=== PATIENT | female | born 1965 | race Two or more races ===

== ENCOUNTER 2016-10-11 11:19 | Emergency (ER) | payer OTHER ==
[~2016-10-11] VITALS: Wt 78.0 kg
[~2016-10-11 11:19] MED LIST: ATOR40TA68 PO; CYCL-319 PO; DOCU100C26 PO; MELO-110 PO; RANI300C7 PO; TEMA15CA PO
--- NOTE | 2016-10-11 14:00 | RADRPT ---
PROCEDURE: XR Chest. CLINICAL INDICATION: Cough for 3 weeks. TECHNIQUE: Single frontal view of the chest was obtained COMPARISON: Chest x-ray 07/05/2016. FINDINGS: The soft tissues are normal. The bony elements are normal. The heart, left side aorta, cardiomedias tinal silhouette, pulmonary vasculature and hilar structures are normal. The lungs are clear. The co stophrenic angles are normal. IMPRESSION: 1. Normal chest x-ray with no interval change as compared to July 05, 2016. 2. No acute infiltrate is present. RPTAT:AAJJ Physician Shekhar Date Time Electronically viewed and signed by Kumar Catalan Physician on 10/11/2016 13:59 JAYLA/
[2016-10-11] MEDS ORDERED: BENZ100C70 PO (14:30)
[2016-10-11] MEDS ORDERED: ACET325T33 PO (14:30)
[2016-10-11 15:32] VITALS: BP 134/78; PULSE 99; RESP 18; TEMP 98.4
--- NOTE | 2016-10-11 15:38 | ERD ---
ER Documentation Chief Complaint Date/Time DATE: 10/11/16 TIME: 15:34 Chief Complaint COUGH X 3 WEEK HPI This patient is a 50-year-old female with history of type 2 diabetes and high cholesterol presenting to the emergency department for myalgias, productive cough of green phlegm, tactile fevers, and chest congestion ongoing intermittently for the past 3 weeks. The patient did go to her doctor approximately 2 weeks ago and was prescribed amoxicillin and cough syrup but has only had slight relief. The patient denies any chest pain, shortness of breath, nausea, vomiting, diarrhea, urinary symptoms, or other symptoms at this time peer ROS All systems reviewed and are negative except as per history of present illness. Medications Home Meds Active Scripts Acetaminophen* (Tylenol*) 325 Mg Tablet, 1 TAB PO Q6 Y for PAIN AND OR ELEVATED TEMP, #20 TAB Prov:JERMAINE CASTILLO PA-C 10/11/16 Benzonatate* (Tessalon Perle*) 100 Mg Capsule, 100 MG PO Q8H Y for COUGH, #20 CAP Prov:JERMAINE CASTILLO PA-C 10/11/16 Reported Medications Meloxicam* (Mobic*) 15 Mg Tablet, 15 MG PO DAILY, #30 TAB 07/04/16 Atorvastatin* (Atorvastatin*) 40 Mg Tablet, 20 MG PO QHS, #30 TAB 03/13/16 Temazepam* (Temazepam*) 15 Mg Capsule, 15 MG PO HS MAY REPEAT X 1 Y for INSOMNIA , CAP 03/13/16 Docusate Sodium* (Doc-Q-Lace*) 100 Mg Capsule, 100 MG PO DAILY, CAP 03/13/16 Cyclobenzaprine Hcl* (Cyclobenzaprine Hcl*) 10 Mg Tablet, 10 MG PO TID, #90 TAB 03/13/16 Ranitidine Hcl (Ranitidine Hcl) 300 Mg Capsule, 300 MG PO HS, CAP 06/22/15 Allergies Allergies: Coded Allergies: No Known Allergy (Unverified , 07/05/16) PMhx/Soc History of Surgery: No Anesthesia Reaction: Yes (N/V) Hx Neurological Disorder: No Hx Respiratory Disorders: No Hx Cardiac Disorders: Yes (HTN,HYSTERECTOMY) Hx Psychiatric Problems: No Hx Miscellaneous Medical Probl: Yes (HNP) Hx Alcohol Use: Yes Hx Substance Use: No Hx Tobacco Use: Yes Smoking Status: Never smoker FmHx Noncontributory for chief complaint Physical Exam Vitals Vital Signs Date Time Temp Pulse Resp B/P Pulse Ox O2 Delivery O2 Flow Rate FiO2 10/11/16 15:32 98.4 99 18 134/78 100 Room Air 10/11/16 11:31 99.1 89 18 141/7 99 Physical Exam INITIAL VITAL SIGNS: Reviewed by me. GENERAL: Alert and interactive. No acute distress. HEAD: Head is normocephalic and atraumatic. EYES: EOMI. No scleral icterus. No conjunctival injection. ENT: Moist mucosa. NECK: Supple. Full range of motion. RESPIRATORY: Normal respiratory effort. Clear breath sounds bilaterally. No wheezing, rales, or rhonchi. CV: Regular rate and rhythm. Normal S1 S2. No S3 or S4. No murmurs. ABDOMEN: Soft, non-distended, non-tender. No guarding. No rebound. No masses. EXTREMITIES: No deformity. SKIN: Warm and dry. NEUROLOGIC: Alert and oriented x 4. Speech is normal. Moves all extremities equally. No motor or sensory deficits noted. Procedures/MDM 50-year-old female presents secondary to complaints of myalgias, cough, and tactile fevers. On physical examination the patient's vitals are all within normal limits. Patient's lungs are clear to auscultation bilaterally. One view chest x-ray interpreted by radiologist showed no bronchitis, pneumonia , hyperinflation, or other abnormalities. EKG: Interpreted by ED physician Rate/Rhythm: Normal sinus rhythm with a rate of 96 bpm. QRS, ST, T-waves: No changes consistent w/ acute ischemia Impression: No evidence of ischemia or arrhythmia The patient's primary diagnosis is cough. I believe the patient's symptoms are due to viral etiology. The patient was given a prescription for Tessalon Perles and was told to take ibuprofen as needed for fevers or any pain. I doubt very much any bronchitis, pneumonia, pneumothorax, pulmonary embolism, or other cardiopulmonary abnormalities. Patient was advised to follow-up with her primary care physician within the next 5 days. She is hemodynamically stable for outpatient management. All questions and concerns were addressed. Departure Diagnosis: Primary Impression: Cough Condition: Fair Patient Instructions: Cough, Chronic, Uncertain Cause, (Adult) Referrals: IVETH MASTERS (PCP) Additional Instructions: Follow-up with your primary care physician within 1 week. Return to the emergency department immediately should you have any new or worsening symptoms, uncontrolled fevers, or other unexplained symptoms. Take all medications as directed. JERMAINE CASTILLO PA-C Oct 11, 2016 15:38
== END 2016-10-11 15:31 | disposition home or self-care (01) ==
LOC: FTE 11:19
DX: R05 Cough (principal); I10 Essential (primary) hypertension; E11.9 Type 2 diabetes mellitus without complications
CPT/HCPCS: 71010; 93005

== ENCOUNTER 2016-12-29 14:38 | Emergency (ER) | payer OTHER ==
[~2016-12-29] VITALS: Ht 167.6 cm; Wt 80.0 kg
[~2016-12-29 14:38] MED LIST changes: +ACET325T33 PO; +BENZ100C70 PO
[2016-12-29 14:46] VITALS: Ht 167.6 cm; Wt 80.0 kg
[2016-12-29] MEDS ORDERED: KETOROLAC 30 MG INJ IM STA (15:42)
[2016-12-29] MEDS ORDERED: PRED20TA PO (15:44)
[2016-12-29] MEDS ORDERED: NAPR-260 PO (15:44)
--- NOTE | 2016-12-29 15:46 | ERD ---
ER Documentation Chief Complaint Date/Time DATE: 12/29/16 TIME: 15:45 Chief Complaint LOWER BACK PAIN RADIATING DOWN LEFT LEG, DENIES INJURY HPI This 51-year-old female who presents the emergency department today complaining of left-sided lower back pain. Patient states that she had surgery in July of last year and her pain was improved for a period of time but now has been worse again for the past 3 weeks. States he has pain that goes down her leg. Since that she takes hydrocodone for pain. States that she had an MRI and she is waiting for her results. States she does have some weakness in her knee. denies any loss of bowel or bladder control, fevers or chills or new trauma ROS All systems reviewed and are negative except as per history of present illness. Medications Home Meds Active Scripts Naproxen* (Naprosyn*) 500 Mg Tablet, 500 MG PO BID Y for PAIN AND/OR INFLAMMATION, #30 TAB Prov:LARRY RICHARDSON PA-C 12/29/16 Prednisone* (Prednisone*) 20 Mg Tab, 40 MG PO DAILY for 4 Days, TAB Prov:LARRY RICHARDSON PA-C 12/29/16 Acetaminophen* (Tylenol*) 325 Mg Tablet, 1 TAB PO Q6 Y for PAIN AND OR ELEVATED TEMP, #20 TAB Prov:JERMAINE CASTILLO PA-C 10/11/16 Benzonatate* (Tessalon Perle*) 100 Mg Capsule, 100 MG PO Q8H Y for COUGH, #20 CAP Prov:JERMAINE CASTILLO PA-C 10/11/16 Reported Medications Meloxicam* (Mobic*) 15 Mg Tablet, 15 MG PO DAILY, #30 TAB 07/04/16 Atorvastatin* (Atorvastatin*) 40 Mg Tablet, 20 MG PO QHS, #30 TAB 03/13/16 Temazepam* (Temazepam*) 15 Mg Capsule, 15 MG PO HS MAY REPEAT X 1 Y for INSOMNIA , CAP 03/13/16 Docusate Sodium* (Doc-Q-Lace*) 100 Mg Capsule, 100 MG PO DAILY, CAP 03/13/16 Cyclobenzaprine Hcl* (Cyclobenzaprine Hcl*) 10 Mg Tablet, 10 MG PO TID, #90 TAB 03/13/16 Ranitidine Hcl (Ranitidine Hcl) 300 Mg Capsule, 300 MG PO HS, CAP 06/22/15 Allergies Allergies: Coded Allergies: No Known Allergy (Unverified , 07/05/16) PMhx/Soc History of Surgery: No Anesthesia Reaction: Yes (N/V) Hx Neurological Disorder: No Hx Respiratory Disorders: No Hx Cardiac Disorders: Yes (HTN,HYSTERECTOMY) Hx Psychiatric Problems: No Hx Miscellaneous Medical Probl: Yes (HNP) Hx Alcohol Use: Yes Hx Substance Use: No Hx Tobacco Use: Yes Physical Exam Vitals Vital Signs Date Time Temp Pulse Resp B/P Pulse Ox O2 Delivery O2 Flow Rate FiO2 12/29/16 14:46 99.3 98 20 149/83 97 Physical Exam Const: NAD Head: Atraumatic Eyes: Normal Conjunctiva ENT: Normal External Ears, Nose and Mouth. Neck: Full range of motion..~ No meningismus. Resp: Clear to auscultation bilaterally Cardio: Regular rate and rhythm, no murmurs Skin: No petechiae or rashes Back: No midline tenderness. Left-sided paraspinal tenderness. No CVA tenderness. MSK: Full active range of motion at hip, knee, ankle. Strength 4 out of 5 left compared to right. Pulses 2+. Distal neurovascularly intact Neuro: Awake and alert Psych: Normal Mood and Affect Results 24 hrs Current Medications Medications (Trade) Dose Ordered Sig/Mohinder Route PRN Reason Start Time Stop Time Status Last Admin Dose Admin Ketorolac Tromethamine (Toradol) 30 mg ONCE STAT IM 12/29/16 15:42 12/29/16 15:44 DC Prednisone (Prednisone) 60 mg ONCE ONCE PO 12/29/16 16:00 12/29/16 16:01 Procedures/MDM This 51-year-old female who presents the emergency department today complaining of left-sided back pain that radiates down her left leg. Patient has a history of surgery in July [address] Gudino. Upon review of the operative report patient had a left-sided L3-4 discectomy, L3 and L4 laminectomy and decompression of the L3 and L4 nerve root. She did indicate that for a period of time she did have some improvement in pain and symptoms however her pain has returned in the past 3 weeks. She is waiting for results of her MRI and is hoping to be able to follow-up next week. Patient has no new trauma. She is afebrile and otherwise well-appearing. Do not feel she requires laboratory work or imaging at this time. Low suspicion for acute fracture dislocation. Low suspicion for abscess or cauda equina. Patient symptoms at this time is consistent with back pain and lower extremity radiculopathy. Patient did indicate that she has some weakness in her knee however that she does walk with a walker and does feel safe. Patient was really requesting pain medication. Patient was given Toradol here in the emergency department. I did also give her prednisone here as well. She has been instructed to continue taking her regular Haskins at home as well as her Soma. I did give her Naprosyn as well as a short course of prednisone for home. Patient does have diabetes and she was instructed to stop taking the prednisone at home if her blood sugar dramatically increases. Patient was instructed to follow-up next week on results of her MRI. At this time the patient is stable for discharge and outpatient management. Patient should follow up with their PCP in the next 1-2 days. They may return to the emergency department sooner for any persistent or worsening of symptoms. Patient understood and agreed with the plan. Departure Diagnosis: Primary Impression: Back pain Back pain location: low back pain Chronicity: chronic Back pain laterality : left Sciatica presence: with sciatica Sciatica laterality: sciatica of left side Qualified Code: M54.42 - Chronic left-sided low back pain with left- sided sciatica Condition: Fair Referrals: IVETH MASTERS (PCP) DR. Gudino Additional Instructions: Llame al doctor OMAR y manuel christopher SHAWN PARA DENTRO DE 1-2 BARRON.Dgale a la secretaria que nosotros le instruimos hacer esta shawn.Avise o llame si belle condicin se empeora antes de la shawn. Regresa aqui si peor o no mejor. Call your doctor tomorrow to find out results of MRI Take your usual pain medication and take Naprosyn and prednisone as prescribed LARRY RICHARDSON PA-C Dec 29, 2016 15:46
[2016-12-29] MEDS ORDERED: predniSONE 20 MG TAB PO ONE (16:00)
== END 2016-12-29 16:19 | disposition home or self-care (01) ==
LOC: FTE 14:38
DX: M54.42 Lumbago with sciatica, left side (principal); I10 Essential (primary) hypertension; Z87.891 Personal history of nicotine dependence
CPT/HCPCS: 96372; J1885; J7512; Z7502

== ENCOUNTER 2017-04-18 07:51 | Emergency (ER) | payer OTHER ==
[~2017-04-18] VITALS: Wt 80.0 kg
[~2017-04-18 07:51] MED LIST changes: +NAPR-260 PO; +PRED20TA PO
[2017-04-18] MEDS ORDERED: KETOROLAC 30 MG INJ IM STA (08:19)
[2017-04-18] MEDS ORDERED: DIAZEPAM 5 MG TAB PO STA (08:19)
[2017-04-18] MEDS ORDERED: NAPR-260 PO (08:25)
--- NOTE | 2017-04-18 08:44 | ERD ---
ER Documentation Chief Complaint Date/Time DATE: 04/18/17 TIME: 08:38 Chief Complaint RIGHT SIDE PAIN, RECENT BACK SURGERY, NO NUMBNESS, AMBULATORY HPI 51 year old female presents to ER SP lumbar disc herniation surgery in [place] on March 07 complaining of moderate, achy bilateral lumbar back pain when she walks, R>L. Patient denies saddle anesthesia, bladder or bowel incontinence. She states she has been taking cyclobenzaprine without much relief. Patient walks with a cane ROS All systems reviewed and are negative except as per history of present illness. Medications Home Meds Active Scripts Naproxen* (Naprosyn*) 500 Mg Tablet, 500 MG PO BID Y for PAIN AND/OR INFLAMMATION, #30 TAB Prov:MAYRA SANCHEZ PA-C 04/18/17 Naproxen* (Naprosyn*) 500 Mg Tablet, 500 MG PO BID Y for PAIN AND/OR INFLAMMATION, #30 TAB Prov:LARRY RICHARDSON PA-C 12/29/16 Prednisone* (Prednisone*) 20 Mg Tab, 40 MG PO DAILY for 4 Days, TAB Prov:LARRY RICHARDSON PA-C 12/29/16 Acetaminophen* (Tylenol*) 325 Mg Tablet, 1 TAB PO Q6 Y for PAIN AND OR ELEVATED TEMP, #20 TAB Prov:JERMAINE CASTILLO PA-C 10/11/16 Benzonatate* (Tessalon Perle*) 100 Mg Capsule, 100 MG PO Q8H Y for COUGH, #20 CAP Prov:JERMAINE CASTILLO PA-C 10/11/16 Reported Medications Meloxicam* (Mobic*) 15 Mg Tablet, 15 MG PO DAILY, #30 TAB 07/04/16 Atorvastatin* (Atorvastatin*) 40 Mg Tablet, 20 MG PO QHS, #30 TAB 03/13/16 Temazepam* (Temazepam*) 15 Mg Capsule, 15 MG PO HS MAY REPEAT X 1 Y for INSOMNIA , CAP 03/13/16 Docusate Sodium* (Doc-Q-Lace*) 100 Mg Capsule, 100 MG PO DAILY, CAP 03/13/16 Cyclobenzaprine Hcl* (Cyclobenzaprine Hcl*) 10 Mg Tablet, 10 MG PO TID, #90 TAB 03/13/16 Ranitidine Hcl (Ranitidine Hcl) 300 Mg Capsule, 300 MG PO HS, CAP 06/22/15 Allergies Allergies: Coded Allergies: No Known Allergy (Unverified , 07/05/16) PMhx/Soc History of Surgery: No (BACK SX) Anesthesia Reaction: Yes (N/V) Hx Neurological Disorder: No Hx Respiratory Disorders: No Hx Cardiac Disorders: No Hx Psychiatric Problems: No Hx Miscellaneous Medical Probl: Yes (DM, CHRONIC BACK PAIN) Hx Alcohol Use: No Hx Substance Use: No Hx Tobacco Use: No Smoking Status: Never smoker Physical Exam Vitals Vital Signs Date Time Temp Pulse Resp B/P Pulse Ox O2 Delivery O2 Flow Rate FiO2 04/18/17 07:55 98.1 73 17 125/69 98 Physical Exam Exam GENERAL: WD/WN, in no apparent distress, non-toxic appearing HENT: NC/AT EYES: Conjunctiva normal NECK: Supple PULM: Normal labored breathing CV: Good capillary refill GI: Non-distended, no guarding BACK: no deformities noted, normal spinal curvature, TTP on lumbar region BL, non-tender on spine midline scar in lumbar spine midline EXT: No clubbing, cyanosis, or edema NEURO: Moves on all fours, sensation intact, normal gait SKIN: intact PSYCH: Normal mood Results 24 hrs Current Medications Medications (Trade) Dose Ordered Sig/Mohinder Route PRN Reason Start Time Stop Time Status Last Admin Dose Admin Ketorolac Tromethamine (Toradol) 30 mg ONCE STAT IM 04/18/17 08:19 04/18/17 08:21 DC 04/18/17 08:32 Diazepam (Valium) 10 mg ONCE STAT PO 04/18/17 08:19 04/18/17 08:21 DC 04/18/17 08:29 Procedures/MDM 51 year old female presents to ER SP lumbar disc herniation surgery in [place] on March 07 complaining of moderate, achy bilateral lumbar back pain when she walks, R>L. Low suspicion for cauda equina, infection. Patient appears well, ambulating with cane. This is likely a stain due to physical examination. In the ED, patient was given toradol and valium. Prescription for naproxen was provided, discussed to follow-up with her back surgeon. Patient understood and agreed with plan Departure Diagnosis: Primary Impression: Lumbar strain Condition: Stable Patient Instructions: Back Spasm, No Trauma, Back Sprain/Strain Additional Instructions: Visite a belle mdico maana para un EXAMEN.Regrese a estas instalaciones si no se mejora cheryl esperbamos o cheryl le dijimos. Ixl toda la medicina sanaz y cheryl se le indic. MAYRA SANCHEZ PA-C Apr 18, 2017 08:44
== END 2017-04-18 08:49 | disposition home or self-care (01) ==
LOC: FTE 07:51
DX: S39.012A Strain of muscle, fascia and tendon of lower back, initial encounter (principal); E11.9 Type 2 diabetes mellitus without complications; X58.XXXA Exposure to other specified factors, initial encounter; Y92.9 Unspecified place or not applicable
CPT/HCPCS: 96372; J1885; Z7502; Z7610

== ENCOUNTER 2017-09-23 08:55 | Emergency (ER) | END 2017-09-23 12:31 | disposition home or self-care (01) ==

== ENCOUNTER 2018-01-27 09:36 | Emergency (ER) | END 2018-01-27 11:35 | disposition home or self-care (01) ==

== ENCOUNTER 2018-04-19 07:38 | Emergency (ER) | END 2018-04-19 08:37 | disposition home or self-care (01) ==

== ENCOUNTER 2018-06-17 08:40 | Emergency (ER) | END 2018-06-17 10:15 | disposition home or self-care (01) ==

== ENCOUNTER 2018-08-23 12:18 | Emergency (ER) | END 2018-08-23 15:14 | disposition home or self-care (01) ==

== ENCOUNTER 2018-11-17 17:15 | Emergency (ER) | payer OTHER ==
[~2018-11-17] VITALS: Ht 162.6 cm; Wt 78.8 kg
[~2018-11-17 17:15] MED LIST changes: +BENZ-6 PO; -BENZ100C70 PO; +CIPR500T4 PO; -CYCL-319 PO; +CYCL10TA7 PO; +DOCU-221 PO; -DOCU100C26 PO; +IBUP-1542 PO; +MED4DP PO; -MELO-110 PO; +MELO15TA30 PO; -NAPR-260 PO; +NAPR-985 PO; +OXYC-279 PO
[2018-11-17 17:44] VITALS: BP 127/72; PULSE 90; RESP 20; Ht 162.6 cm; Wt 78.8 kg
[2018-11-17] MEDS ORDERED: IBUP800T48 PO (20:17)
--- NOTE | 2018-11-17 20:19 | ERD ---
ER Documentation Chief Complaint Chief Complaint st x 4 weeks; finished ATB from pmd; still c/o pain and pain swallowing HPI 53-year-old female presents with sore throat that she had for 4 weeks. She did see her primary care doctor who gave her a prescription for amoxicillin which she completed but states she continues to have pain. She is tolerating oral intake. No fever. She has appointment coming up for an endoscopy at the beginning of November. No nausea or vomiting. No chest pain palpitations or shortness of breath. ROS All systems reviewed and are negative except as per history of present illness. Medications Home Meds Active Scripts Ibuprofen* (Motrin*) 800 Mg Tab, 800 MG PO Q6, #30 TAB Prov:RAFFI POWELL PA-C 11/17/18 Ibuprofen* (Motrin*) 600 Mg Tab, 600 MG PO Q8, #30 TAB Prov:NITA BALTAZAR MD 08/23/18 Cyclobenzaprine Hcl* (Cyclobenzaprine Hcl*) 10 Mg Tablet, 10 MG PO TID, #15 TAB Prov:GIGI PATRICIA PA-C 06/17/18 Methylprednisolone* (Medrol* DOSE PACK) 4 Mg/Dose-Pack Tab.ds.pk, 4 MG PO . DIRECTED, #1 PACKET Prov:GIGI PATRICIA PA-C 06/17/18 Oxycodone HCl/Acetaminophen (Percocet 5-325 mg Tablet) 1 Each Tablet, 1 EACH PO DAILY, #7 TAB Prov:GIGI PATRICIA PA-C 06/17/18 Naproxen* (Naprosyn*) 500 Mg Tablet, 500 MG PO BID PRN for PAIN AND/OR INFLAMMATION, #30 TAB Prov:GIGI PATRICIA PA-C 06/17/18 Acetaminophen* (Tylenol*) 325 Mg Tablet, 1 TAB PO Q6 PRN for PAIN AND OR ELEVATED TEMP, #20 TAB Prov:JACEY WRIGHT PA-C 04/19/18 Ibuprofen* (Motrin*) 600 Mg Tab, 600 MG PO Q6H PRN for PAIN AND OR ELEVATED TEMP, #30 TAB Prov:JACEY WRIGHT PA-C 04/19/18 Oxycodone HCl/Acetaminophen (Percocet 5-325 mg Tablet) 1 Each Tablet, 1 EACH PO DAILY, #5 TAB Prov:GIGI PATRICIAC 01/27/18 Naproxen* (Naprosyn*) 500 Mg Tablet, 500 MG PO BID PRN for PAIN AND/OR INFLAMMATION, #30 TAB Prov:GIGI PATRICIA PA-C 01/27/18 Ciprofloxacin Hcl* (Ciprofloxacin Hcl*) 500 Mg Tablet, 500 MG PO BID for 7 Days, TAB Prov:GIGI PATRICIA PA-C 01/27/18 Methylprednisolone* (Medrol* DOSE PACK) 4 Mg/Dose-Pack Tab.ds.pk, 4 MG PO . DIRECTED, #1 PACKET Prov:GIGI PATRICIA PA-C 01/27/18 Ibuprofen* (Motrin*) 600 Mg Tab, 600 MG PO Q6, #30 TAB Prov:JACEY WRIGHT PA-C 09/23/17 Naproxen* (Naprosyn*) 500 Mg Tablet, 500 MG PO BID PRN for PAIN AND/OR INFLAMMATION, #30 TAB Prov:MAYRA SANCHEZ PA-C 04/18/17 Naproxen* (Naprosyn*) 500 Mg Tablet, 500 MG PO BID PRN for PAIN AND/OR INFLAMMATION, #30 TAB Prov:LARRY RICHARDSON PA-C 12/29/16 Prednisone* (Prednisone*) 20 Mg Tab, 40 MG PO DAILY for 4 Days, TAB Prov:LARRY RICHARDSONC 12/29/16 Acetaminophen* (Tylenol*) 325 Mg Tablet, 1 TAB PO Q6 PRN for PAIN AND OR ELEVATED TEMP, #20 TAB Prov:JERMAINE CASTILLOC 10/11/16 Benzonatate* (Tessalon Perle*) 100 Mg Capsule, 100 MG PO Q8H PRN for COUGH, #20 CAP Prov:JERMAINE CASTILLOC 10/11/16 Reported Medications Meloxicam* (Mobic*) 15 Mg Tablet, 15 MG PO DAILY, #30 TAB 07/04/16 Atorvastatin* (Atorvastatin*) 40 Mg Tablet, 20 MG PO QHS, #30 TAB 03/13/16 Temazepam* (Temazepam*) 15 Mg Capsule, 15 MG PO HS MAY REPEAT X 1 PRN for INSOMNIA, CAP 03/13/16 Docusate Sodium* (Doc-Q-Lace*) 100 Mg Capsule, 100 MG PO DAILY, CAP 03/13/16 Cyclobenzaprine Hcl* (Cyclobenzaprine Hcl*) 10 Mg Tablet, 10 MG PO TID, #90 TAB 03/13/16 Ranitidine Hcl (Ranitidine Hcl) 300 Mg Capsule, 300 MG PO HS, CAP 06/22/15 Allergies Allergies: Coded Allergies: No Known Allergy (Unverified , 01/27/18) PMhx/Soc History of Surgery: Yes (lower back, lwft shoulder, left wrist) Anesthesia Reaction: No Hx Neurological Disorder: Yes (L leg sciatica) Hx Respiratory Disorders: No Hx Cardiac Disorders: Yes (HTN,HYPERCHOLESTEROLEMIA) Hx Psychiatric Problems: No Hx Miscellaneous Medical Probl: Yes (DM) Hx Alcohol Use: No Hx Substance Use: No Hx Tobacco Use: No Smoking Status: Never smoker FmHx Family History: diabetes Physical Exam Vitals Vital Signs Date Temp Pulse Resp B/P (MAP) Pulse Ox O2 O2 Flow FiO2 Time Delivery Rate 11/17/18 98.6 90 20 127/72 99 17:44 (90) Physical Exam INITIAL VITAL SIGNS: Reviewed by me GENERAL: Awake, alert and oriented x 4, well appearing, nontoxic, speaking in full sentences. No acute distress HEAD: Atraumatic NECK: Supple. No masses. Full range of motion. No meningismus. No midline tenderness. EYES: EOMI. PERRL. THROAT: No tonilar erythema or edema. No exudates. Uvula midline. No kissing tonsils. RESPIRATORY: Clear to auscultation bilaterally. Symmetric chest wall rise. No wheezing or rales. No accessory muscle use. CV: Regular rate and rhythm. No murmurs, rubs, or gallops. Procedures/MDM Patient is here with sore throat. She already completed antibiotics. She is afebrile well-appearing her exam is normal. She is tolerating oral intake. She can take Tylenol or Motrin at home for pain and follow-up for her endoscopy. No indication for further workup at this time. Patient counseled regarding my diagnostic impression and care plan. Prior to discharge all questions answered. Pt agrees with treatment plan and understands strict return precautions. Pt is instructed to follow up with primary care provider within 24-48 hours. Precautionary instructions provided including instructions to return to the ER if not improving or for any worsening or changing symptoms or concerns. Departure Diagnosis: Primary Impression: Sore throat Condition: Stable Patient Instructions: Self-Care for Sore Throats Additional Instructions: Llame al doctor MAANA y manuel christopher SHAWN PARA DENTRO DE 1-2 BARRON.Dgale a la secretaria que nosotros le instruimos hacer esta shawn.Avise o llame si belle condicin se empeora antes de la shawn. Regresa aqui si peor o no mejor. RAFFI POWELL PA-C Nov 17, 2018 20:19
== END 2018-11-17 20:26 | disposition home or self-care (01) ==
LOC: FTE 17:15
DX: J02.9 Acute pharyngitis, unspecified (principal); I10 Essential (primary) hypertension; E11.9 Type 2 diabetes mellitus without complications
CPT/HCPCS: 99282

== ENCOUNTER 2018-12-16 12:24 | Day surgery (SDC) | payer OTHER ==
[~2018-12-16] VITALS: Ht 157.5 cm; Wt 79.1 kg
[~2018-12-16 12:24] MED LIST changes: +IBUP800T48 PO; +PROPOFOL 200 MG INJ ONE
[2018-12-16 13:04] VITALS: Ht 157.5 cm; Wt 79.1 kg
[2018-12-16] MEDS ORDERED: OMEPRAZOLE (13:12)
[2018-12-16] MEDS ORDERED: GABAPENTIN (13:12)
[2018-12-16] MEDS ORDERED: MAPAP (13:12)
[2018-12-16] MEDS ORDERED: METFORMIN (13:12)
[2018-12-16] MEDS ORDERED: FLUTICASONE (13:12)
[2018-12-16 13:35] VITALS: BP 119/63; PULSE 76; RESP 16
[2018-12-16] MEDS ORDERED: PROPOFOL 20 ML ONE (14:31)
[2018-12-16] MEDS ORDERED: LIDOCAINE 100 MG SYRINGE ONE (14:31)
--- NOTE | 2018-12-16 14:42 | PREAC ---
Date/Time of Note Date/Time of Note DATE: 12/16/18 TIME: 14:38 Anesthesia Eval and Record Evaluation Time Pre-Procedure Interview DATE: 12/16/18 TIME: 14:38 Age 53 Sex female NPO: 8 hrs Preoperative diagnosis abdominal pain / melena Planned procedure EGD / Colonoscopy Past Medical History Past Medical History: Includes Cardio: Dyslipidemia Endo: Diabetes Pulm: Smoking Hx Surgery & Anesthesia Issues No known issue Meds Anticoagulation: No Beta Marquita within 24 hr: No Reason Beta Marquita not given: Pt. not on B-Marquita Active Scripts Cyclobenzaprine Hcl* (Cyclobenzaprine Hcl*) 10 Mg Tablet, 10 MG PO TID, #15 TAB Prov:GIGI PATRICIA PA-C 06/17/18 Oxycodone HCl/Acetaminophen (Percocet 5-325 mg Tablet) 1 Each Tablet, 1 EACH PO DAILY, #7 TAB Prov:GIGI PATRICIA PA-C 06/17/18 Ibuprofen* (Motrin*) 600 Mg Tab, 600 MG PO Q6H PRN for PAIN AND OR ELEVATED TEMP, #30 TAB Prov:JACEY WRIGHT PA-C 04/19/18 Oxycodone HCl/Acetaminophen (Percocet 5-325 mg Tablet) 1 Each Tablet, 1 EACH PO DAILY, #5 TAB Prov:GIGI PATRICIA PA-C 01/27/18 Ibuprofen* (Motrin*) 600 Mg Tab, 600 MG PO Q6, #30 TAB Prov:JACEY WRIGHT PA-C 09/23/17 Reported Medications [Mapap] No Conflict Check 12/16/18 [Fluticasone] No Conflict Check 12/16/18 [Gabapentin] No Conflict Check 12/16/18 [Omeprazole] No Conflict Check 12/16/18 [Metformin] No Conflict Check 12/16/18 Cyclobenzaprine Hcl* (Cyclobenzaprine Hcl*) 10 Mg Tablet, 10 MG PO TID, #90 TAB 03/13/16 Ranitidine Hcl (Ranitidine Hcl) 300 Mg Capsule, 300 MG PO HS, CAP 06/22/15 Discontinued Reported Medications Meloxicam* (Mobic*) 15 Mg Tablet, 15 MG PO DAILY, #30 TAB 07/04/16 Atorvastatin* (Atorvastatin*) 40 Mg Tablet, 20 MG PO QHS, #30 TAB 7/13/16 Temazepam* (Temazepam*) 15 Mg Capsule, 15 MG PO HS MAY REPEAT X 1 PRN for INSOMNIA, CAP 03/13/16 Docusate Sodium* (Doc-Q-Lace*) 100 Mg Capsule, 100 MG PO DAILY, CAP 03/13/16 Discontinued Scripts Ibuprofen* (Motrin*) 800 Mg Tab, 800 MG PO Q6, #30 TAB Prov:RAFFI POWELL PA-C 11/17/18 Ibuprofen* (Motrin*) 600 Mg Tab, 600 MG PO Q8, #30 TAB Prov:NITA BALTAZAR MD 08/23/18 Methylprednisolone* (Medrol* DOSE PACK) 4 Mg/Dose-Pack Tab.ds.pk, 4 MG PO . DIRECTED, #1 PACKET Prov:GIGI PATRICIA PA-C 06/17/18 Naproxen* (Naprosyn*) 500 Mg Tablet, 500 MG PO BID PRN for PAIN AND/OR INFLAMMATION, #30 TAB Prov:GIGI PATRICIA PA-C 06/17/18 Acetaminophen* (Tylenol*) 325 Mg Tablet, 1 TAB PO Q6 PRN for PAIN AND OR ELEVATED TEMP, #20 TAB Prov:JACEY WRIGHT PA-C 04/19/18 Naproxen* (Naprosyn*) 500 Mg Tablet, 500 MG PO BID PRN for PAIN AND/OR INFLAMMATION, #30 TAB Prov:GIGI PATRICIA PA-C 01/27/18 Ciprofloxacin Hcl* (Ciprofloxacin Hcl*) 500 Mg Tablet, 500 MG PO BID for 7 Days, TAB Prov:GIGI PATRICIA PA-C 01/27/18 Methylprednisolone* (Medrol* DOSE PACK) 4 Mg/Dose-Pack Tab.ds.pk, 4 MG PO . DIRECTED, #1 PACKET Prov:GIGI PATRICIA PA-C 01/27/18 Naproxen* (Naprosyn*) 500 Mg Tablet, 500 MG PO BID PRN for PAIN AND/OR INFLAMMATION, #30 TAB Prov:MAYRA SANCHEZ PA-C 04/18/17 Naproxen* (Naprosyn*) 500 Mg Tablet, 500 MG PO BID PRN for PAIN AND/OR INFLAMMATION, #30 TAB Prov:LARRY RICHARDSON PA-C 12/29/16 Prednisone* (Prednisone*) 20 Mg Tab, 40 MG PO DAILY for 4 Days, TAB Prov:LARRY RICHARDSON PA-C 12/29/16 Acetaminophen* (Tylenol*) 325 Mg Tablet, 1 TAB PO Q6 PRN for PAIN AND OR ELEVATED TEMP, #20 TAB Prov:JERMAINE CASTILLO PA-C 10/11/16 Benzonatate* (Tessalon Perle*) 100 Mg Capsule, 100 MG PO Q8H PRN for COUGH, #20 CAP Prov:JERMAINE CASTILLO PA-C 10/11/16 Meds reviewed: Yes Allergies Coded Allergies: No Known Allergy (Unverified , 12/16/18) Allergies Reviewed: Yes Labs/Studies Labs Reviewed: Reviewed by anesthesiologist test: N/A Pre-procedure Exam Last vitals Vital Signs Date Temp Pulse Resp B/P (MAP) Pulse Ox O2 O2 Flow FiO2 Time Delivery Rate 12/16/18 98.2 76 16 119/63 97 Room Air 13:35 (81) Airway: Adequate mouth opening Mallampati: Mallampati II Teeth: Normal Lung: Normal Heart: Normal ASA Physical Status ASA physical status: 2 Emergency: None Planned Anesthetic General/MAC: MAC Pre-operative Attestations Prior to commencing anesthesia and surgery, the patient was re-evaluated, there was verification of: *The patient's identity *The results of appropriate recent lab work and preoperative vital signs *The above evaluation not changing prior to induction *Anesthetic plan, risk benefits, alternative and complications discussed with patient/family; questions answered; patient/family understands, accepts and wishes to proceed. SHIKHA LIZARRAGA Dec 16, 2018 14:42
--- NOTE | 2018-12-16 15:08 | PAC ---
Date/Time of Note Date/Time of Note DATE: 12/16/18 TIME: 15:08 Post-Anesthesia Notes Post-Anesthesia Note Last documented vital signs Vital Signs Date Temp Pulse Resp B/P (MAP) Pulse Ox O2 O2 Flow FiO2 Time Delivery Rate 12/16/18 98.2 76 16 119/63 97 Room Air 13:35 (81) Activity: WNL Respiratory function: WNL Cardiovascular function: WNL Mental status: Baseline Pain reasonably controlled: Yes Hydration appropriate: Yes Nausea/Vomiting absent: Yes SHIKHA LIZARRAGA Dec 16, 2018 15:08
[2018-12-16 15:15] VITALS: BP 101/55; PULSE 74; RESP 20
[2018-12-16 15:30] VITALS: BP 124/61; PULSE 80; RESP 22
[2018-12-16 15:45] VITALS: BP 121/64; PULSE 74; RESP 16
== END 2018-12-16 17:58 | disposition home or self-care (01) ==
LOC: GIL 12:24
PROVIDERS: ATTEND Internal Medicine Gastroenterology
DX: Z12.11 Encounter for screening for malignant neoplasm of colon (principal); K62.1 Rectal polyp; D12.2 Benign neoplasm of ascending colon; D12.4 Benign neoplasm of descending colon; K64.8 Other hemorrhoids; E11.9 Type 2 diabetes mellitus without complications; E78.5 Hyperlipidemia, unspecified; Z87.891 Personal history of nicotine dependence
CPT/HCPCS: 43239; 45380; 82962; 88305; 88312; J2001; Z7610

== ENCOUNTER 2019-02-08 07:29 | Emergency (ER) | payer OTHER ==
[~2019-02-08] VITALS: Ht 162.6 cm; Wt 79.4 kg
[~2019-02-08 07:29] MED LIST changes: -ACET325T33 PO; -ATOR40TA68 PO; -BENZ-6 PO; -CIPR500T4 PO; -DOCU-221 PO; +FLUTICASONE; +GABAPENTIN; -IBUP800T48 PO; +MAPAP; -MED4DP PO; -MELO15TA30 PO; +METFORMIN; -NAPR-985 PO; +OMEPRAZOLE; -PRED20TA PO; -PROPOFOL 200 MG INJ ONE; -TEMA15CA PO
[2019-02-08 07:32] VITALS: BP 126/84; PULSE 88; RESP 18; Ht 162.6 cm; Wt 79.4 kg
[2019-02-08] MEDS ORDERED: KETOROLAC 60 MG INJ IM STA (07:55)
[2019-02-08] MEDS ORDERED: DEXAMETHASONE 10 MG/ML 1 ML INJ IM ONE (08:00)
[2019-02-08] MEDS ORDERED: NAPR-985 PO (08:23)
[2019-02-08] MEDS ORDERED: MED4DP PO (08:23)
--- NOTE | 2019-02-08 09:28 | ERD ---
ER Documentation Chief Complaint Chief Complaint I have scatica pain left side x3 days HPI 53-year-old female presenting with pain to the left back extending down her left buttock. Patient has a history of sciatic pain. Patient takes chronic medications for this pain however has had a recent flare. Denies any numbness or tingling denies any recent falls. She denies any difficulties urinating or having bowel moods. Denies other medical problems. NKDA. Surgical history denies. Social history denies ROS All systems reviewed and are negative except as per history of present illness. Medications Home Meds Active Scripts Naproxen* (Naprosyn*) 500 Mg Tablet, 500 MG PO BID PRN for PAIN AND/OR INFLAMMATION, #30 TAB Prov:GIGI PATRICIA PA-C 02/08/19 Methylprednisolone* (Medrol* DOSE PACK) 4 Mg/Dose-Pack Tab.ds.pk, 4 MG PO . DIRECTED, #1 PACKET Prov:GIGI PATRICIA PA-C 02/08/19 Cyclobenzaprine Hcl* (Cyclobenzaprine Hcl*) 10 Mg Tablet, 10 MG PO TID, #15 TAB Prov:GIGI PATRICIA PA-C 06/17/18 Oxycodone HCl/Acetaminophen (Percocet 5-325 mg Tablet) 1 Each Tablet, 1 EACH PO DAILY, #7 TAB Prov:GIGI PATRICIA PA-C 06/17/18 Ibuprofen* (Motrin*) 600 Mg Tab, 600 MG PO Q6H PRN for PAIN AND OR ELEVATED TEMP, #30 TAB Prov:JACEY WRIGHT PA-C 04/19/18 Oxycodone HCl/Acetaminophen (Percocet 5-325 mg Tablet) 1 Each Tablet, 1 EACH PO DAILY, #5 TAB Prov:GIGI PATRICIA PA-C 01/27/18 Ibuprofen* (Motrin*) 600 Mg Tab, 600 MG PO Q6, #30 TAB Prov:JACEY WRIGHT PA-C 09/23/17 Reported Medications [Mapap] No Conflict Check 12/16/18 [Fluticasone] No Conflict Check 12/16/18 [Gabapentin] No Conflict Check 12/16/18 [Omeprazole] No Conflict Check 12/16/18 [Metformin] No Conflict Check 12/16/18 Cyclobenzaprine Hcl* (Cyclobenzaprine Hcl*) 10 Mg Tablet, 10 MG PO TID, #90 TAB 03/13/16 Ranitidine Hcl (Ranitidine Hcl) 300 Mg Capsule, 300 MG PO HS, CAP 06/22/15 Allergies Allergies: Coded Allergies: No Known Allergy (Unverified , 12/16/18) PMhx/Soc History of Surgery: Yes (BACK SX; HYSTERECTOMY) Anesthesia Reaction: No Hx Neurological Disorder: No Hx Respiratory Disorders: No Hx Cardiac Disorders: Yes (HIGH CHOLESTEROL) Hx Psychiatric Problems: No Hx Miscellaneous Medical Probl: No Hx Alcohol Use: No Hx Substance Use: No Hx Tobacco Use: Yes Smoking Status: Former smoker FmHx Family History: No diabetes, No coronary disease, No other Physical Exam Vitals Vital Signs Date Temp Pulse Resp B/P (MAP) Pulse Ox O2 O2 Flow FiO2 Time Delivery Rate 02/08/19 98.4 88 18 126/84 98 07:32 (98) Physical Exam GENERAL: The patient is well-appearing, well-nourished, in no acute distress CHEST: Clear to auscultation bilaterally. There are no rales, wheezes or rhonchi. HEART: Regular rate and rhythm. No murmurs, clicks, rubs or gallops. ABDOMEN:Soft, nontender and nondistended. Good bowel sounds. No rebound or guarding. No gross peritonitis. No gross organomegaly or masses. BACK: No midline or flank tenderness. Palpation over the left back extending down the buttocks. EXTREMITIES: Equal pulses bilaterally. There is no peripheral clubbing, cyanosis or edema. No focal swelling or erythema. Full range of motion. Grossly neurovascularly intact. NEUROLOGIC: Alert and oriented. Cranial nerves II through XII intact. Motor strength in all 4 extremities with 5 out of 5 strength. Sensation grossly intact. Normal speech and gait. SKIN: There is no apparent rash or petechiae. The skin is warm and dry. Results 24 hrs Current Medications Medications Dose Sig/Mohinder Start Time Status Last (Trade) Ordered Route PRN Stop Time Admin Dose Reason Admin Ketorolac 60 mg ONCE STAT 02/08/19 DC 02/08/19 Tromethamine IM 07:55 08:10 (Toradol) 02/08/19 07:57 10 mg ONCE ONCE 02/08/19 DC 02/08/19 Dexamethasone IM 08:00 08:10 (Decadron) 02/08/19 08:01 Procedures/MDM ER course: Toradol and Decadron given in ED. MDM: 53-year-old female presenting with back pain. Patient has narcotic medications at home to alleviate her pain so I will supply a short course of steroids to alleviate inflammation of the nerves. I do not feel blood work or imaging is indicated. Patient has not had a recent traumatic injury. Patient's pain is likely associated with sciatica and I have low suspicion for discitis, epidural abscess or discitis. Patient is discharged with strict ER precautions. All questions answered at discharge Departure Diagnosis: Primary Impression: Back pain with sciatica Condition: Stable Patient Instructions: Back Pain W/ Sciatica Referrals: [facility] YOU HAVE RECEIVED A MEDICAL SCREENING EXAM AND THE RESULTS INDICATE THAT YOU DO NOT HAVE A CONDITION THAT REQUIRES URGENT TREATMENT IN THE EMERGENCY DEPARTMENT. FURTHER EVALUATION AND TREATMENT OF YOUR CONDITION CAN WAIT UNTIL YOU ARE SEEN IN YOUR DOCTORS OFFICE WITHIN THE NEXT 1-2 DAYS. IT IS YOUR RESPONSIBILITY TO MAKE AN APPOINTMENT FOR FOLOW-UP CARE. IF YOU HAVE A PRIMARY DOCTOR --you should call your primary doctor and schedule an appointment IF YOU DO NOT HAVE A PRIMARY DOCTOR YOU CAN CALL OUR PHYSICIAN REFERRAL HOTLINE AT IF YOU CAN NOT AFFORD TO SEE A PHYSICIAN YOU CAN CHOSE FROM THE FOLLOWING [facility] [address] [facility] [address] [facility] [facility] [address] [facility] [address] [facility] [address] [facility]. [facility] [address] Additional Instructions: FOLLOW UP WITH YOUR PRIMARY CARE PHYSICIAN TOMORROW.Return to this facility if you are not improving as expected. GIGI PATRICIA PA-C Feb 08, 2019 09:28
== END 2019-02-08 08:39 | disposition home or self-care (01) ==
LOC: FTE 07:29
DX: M54.42 Lumbago with sciatica, left side (principal); Z87.891 Personal history of nicotine dependence
CPT/HCPCS: 96372; J1100; J1885; Z7502

== ENCOUNTER 2019-06-30 05:40 | Day surgery (SDC) | payer OTHER ==
[2019-06-30] VITALS (12 sets, daily range): BP systolic 96–124; BP diastolic 57–75; PULSE 68–84; RESP 12–18; Ht 157.5 cm; Wt 76.0 kg
[~2019-06-30] VITALS: Ht 157.5 cm; Wt 76.0 kg
[~2019-06-30 05:40] MED LIST changes: +BACL10TA ORAL; +EZET10TA32 ORAL; +GABA400C14 ORAL; +HYDR-3609 ORAL; +MED4DP PO; +METF-849 PO; +NAPR-985 PO; +ONDA8TAB9 PO; +PANT40TA4 ORAL; +SULI150T PO; +ZOLP10TA5 ORAL
[2019-06-30] MEDS ORDERED: EPINEPHrine 1 MG/ML 30 ML INJ ONE (06:58)
[2019-06-30] MEDS ORDERED: morphine SULFATE/PF (10 MG/10 ML) INJ ONE (06:59)
[2019-06-30] MEDS ORDERED: CEFAZOLIN 1 GM/NS 50 ML X 1 IVPB ONE (07:00)
[2019-06-30] MEDS ORDERED: METOCLOPRAMIDE 10 MG INJ ONE (07:33)
[2019-06-30] MEDS ORDERED: ONDANSETRON 4 MG INJ ONE (07:33)
[2019-06-30] MEDS ORDERED: CEFAZOLIN 1 GM INJ ONE (07:33)
[2019-06-30] MEDS ORDERED: LIDOCAINE 2% (SDV) 5 ML INJ ONE (07:33)
[2019-06-30] MEDS ORDERED: MEPERIDINE 100 MG INJ ONE (07:33)
[2019-06-30] MEDS ORDERED: SEVOFLURANE 15 MIN ONE (07:33)
[2019-06-30] MEDS ORDERED: PROPOFOL 20 ML ONE (07:33)
[2019-06-30] MEDS ORDERED: MIDAZOLAM 1 MG/ML 2 ML INJ IV PRN (08:30)
[2019-06-30] MEDS ORDERED: hydrALAzine 20 MG INJ IV PRN (08:30)
[2019-06-30] MEDS ORDERED: OXYCODONE/ACETAMINOPHEN (5/325) TAB PO PRN ×2 (08:30)
[2019-06-30] MEDS ORDERED: MEPERIDINE 25 MG INJ IV PRN (08:30)
[2019-06-30] MEDS ORDERED: ONDANSETRON 4 MG INJ IV PRN (08:30)
[2019-06-30] MEDS ORDERED: METOCLOPRAMIDE 10 MG INJ IV PRN (08:30)
[2019-06-30] MEDS ORDERED: DIPHENHYDRAMINE 50 MG INJ IV PRN (08:30)
[2019-06-30] MEDS ORDERED: FENTAnyl 50 MCG/ML VIAL IV PRN ×3 (08:30)
[2019-06-30] MEDS ORDERED: LABETALOL HCL 20MG INJ IV PRN (08:30)
[2019-06-30] MEDS ORDERED: HYDROmorphONE 1 MG/5 ML IV SYRINGE IV PRN ×3 (08:30)
[2019-06-30] MEDS ORDERED: EPHEDrine 25 MG/5 ML SYG IV PRN (08:30)
[2019-06-30] MEDS ORDERED: HYDROCODONE/APAP (5/325) TAB PO PRN (09:00)
== END 2019-06-30 10:11 | disposition home or self-care (01) ==
LOC: SDS 05:40
PROVIDERS: ATTEND Internal Medicine Endocrinology, Diabetes & Metabolism
DX: S83.281A Other tear of lateral meniscus, current injury, right knee, initial encounter (principal); S83.241A Other tear of medial meniscus, current injury, right knee, initial encounter; X58.XXXA Exposure to other specified factors, initial encounter; M65.861 Other synovitis and tenosynovitis, right lower leg; E11.9 Type 2 diabetes mellitus without complications; M06.9 Rheumatoid arthritis, unspecified; Z79.84 Long term (current) use of oral hypoglycemic drugs
CPT/HCPCS: 29880; 82962; C1713; J0171; J0690; J1170; J2175; J2274; J2405; Z7512; Z7610; J2765